=== PATIENT | male | born 1965 | race Caucasian/White ===

== ENCOUNTER 2017-09-12 15:07 | Emergency (ER) | payer BC ==
[2017-09-12 15:55] VITALS: BP 136/74
--- NOTE | 2017-09-12 16:20 | UC ---
Ear Complaint HPI - HPI Summary HPI Summary: feels like ears are plugged with wax - History of Current Complaint Chief Complaint: UCEar Stated Complaint: EARS PLUGGED Time Seen by Provider: 09/12/17 16:08 Hx Obtained From: Patient Onset/Duration: Gradual Onset, Lasting Days, Still Present Severity Initially: Mild Severity Currently: Moderate Aggravating Factors: Nothing Alleviating Factors: Nothing Associated Signs/Symptoms: Positive: Hearing Loss - Allergies/Home Medications Allergies/Adverse Reactions: Allergies Allergy/AdvReac Type Severity Reaction Status Date / Time No Known Allergies Allergy Verified 04/06/16 13:24 Home Medications: Home Medications Carbamide Peroxide (Otic) [Earwax Treatment Drops] 6.5 % OT DAILY PRN 09/12/17 [ History Confirmed 09/12/17] PMH/Surg Hx/FS Hx/Imm Hx Previously Healthy: No Endocrine History: Hypothyroidism - Surgical History Surgical History: Yes Surgery Procedure, Year, and Place: left ankle - Family History Known Family History: Positive: Hypertension - Social History Occupation: Employed Full-time Lives: Alone Alcohol Use: Daily Substance Use Type: None Smoking Status (MU): Current Some Day Smoker Type: Cigars Amount Used/How Often: occasional Length of Time of Smoking/Using Tobacco: 8 YR - Immunization History Most Recent Tetanus Shot: 2013 Review of Systems Constitutional: Negative Skin: Negative Eyes: Negative ENT: Other - cerumen impaction b/l Respiratory: Negative Cardiovascular: Negative Gastrointestinal: Negative Genitourinary: Negative Motor: Negative Neurovascular: Negative Musculoskeletal: Negative Neurological: Negative Psychological: Negative Is Patient Immunocompromised?: No All Other Systems Reviewed And Are Negative: Yes Physical Exam Triage Information Reviewed: Yes Appearance: Well-Appearing, No Pain Distress, Well-Nourished Vital Signs: Initial Vital Signs Temp 97.9 F 09/12/17 15:50 Pulse 75 09/12/17 15:50 Resp 18 09/12/17 15:50 BP 136/74 09/12/17 15:50 Pulse Ox 100 09/12/17 15:50 Vital Signs Reviewed: Yes Eye Exam: Normal Eyes: Positive: Conjunctiva Clear ENT Exam: Normal ENT: Positive: Normal ENT inspection, Hearing grossly normal, Pharynx normal, Uvula midline, Other - cerumen impaction b/l. Negative: Tonsillar swelling, Tonsillar exudate, Dental tenderness, Sinus tenderness Dental Exam: Normal Neck exam: Normal Neck: Positive: Supple, Nontender Respiratory Exam: Normal Respiratory: Positive: Chest non-tender, No respiratory distress, No accessory muscle use Cardiovascular Exam: Normal Cardiovascular: Positive: RRR, Pulses Normal, Brisk Capillary Refill Musculoskeletal Exam: Normal Musculoskeletal: Positive: Strength Intact, ROM Intact Neurological Exam: Normal Neurological: Positive: Alert, Muscle Tone Normal Psychological Exam: Normal Skin Exam: Normal Re-Evaluation - Re-Evaluation First Eval Change: Improved - tm wnl ears cleared of cerumen Ear Complaint Course/Dx - Course Course Of Treatment: return or follow with pcp prn avoid soap and qtips in ear - Differential Dx/Diagnosis Provider Diagnoses: Cerumen impaction now resolved Discharge - Discharge Plan Condition: Stable Disposition: HOME Patient Education Materials: Cerumen Impaction (ED) Referrals: Pastor Moran MD [Primary Care Provider] - If Needed
== END 2017-09-12 16:53 | disposition home or self-care (01) ==
LOC: UCCORT 15:07
DX: H61.23 Impacted cerumen, bilateral (principal); Z72.0 Tobacco use
CPT/HCPCS: 99213; G0463

== ENCOUNTER 2017-09-28 14:27 | Emergency (ER) | payer BC ==
[2017-09-28 15:20] VITALS: BP 141/86
--- NOTE | 2017-09-28 16:17 | UC ---
Ear Complaint HPI - HPI Summary HPI Summary: 51 year old male with ear pain. Had his ears cleaned out here a few weeks ago. Ears have been bothering him since then. He thinks he has an infection. no fever. no loss of hearing [ End ] - History of Current Complaint Chief Complaint: UCEar Stated Complaint: LEFT EAR ACHE Time Seen by Provider: 09/28/17 16:11 Hx Obtained From: Patient Onset/Duration: Gradual Onset Severity Initially: Mild Severity Currently: Moderate - Allergies/Home Medications Allergies/Adverse Reactions: Allergies Allergy/AdvReac Type Severity Reaction Status Date / Time No Known Allergies Allergy Verified 09/28/17 15:21 PMH/Surg Hx/FS Hx/Imm Hx Previously Healthy: Yes - Surgical History Surgical History: Yes Surgery Procedure, Year, and Place: left ankle - Family History Known Family History: Positive: Hypertension - Social History Occupation: Employed Full-time Lives: With Family Alcohol Use: Daily Substance Use Type: None Smoking Status (MU): Current Some Day Smoker Type: Cigars Amount Used/How Often: occasional Length of Time of Smoking/Using Tobacco: 8 YR - Immunization History Most Recent Tetanus Shot: 2013 Review of Systems ENT: Ear Ache Is Patient Immunocompromised?: No All Other Systems Reviewed And Are Negative: Yes Physical Exam Triage Information Reviewed: Yes Appearance: Well-Appearing, No Pain Distress, Well-Nourished Vital Signs: Initial Vital Signs Temp 98.3 F 09/28/17 15:15 Pulse 72 09/28/17 15:15 Resp 14 09/28/17 15:15 BP 141/86 09/28/17 15:15 Pulse Ox 98 09/28/17 15:15 Vital Signs Reviewed: Yes Eye Exam: Normal ENT: Positive: Other - left ear with significant edema and swelling can not visualize the TM due to pain and swelling in the ear Respiratory Exam: Normal Cardiovascular Exam: Normal Ear Complaint Course/Dx - Course Course Of Treatment: if sx worsen go to ED and he is agreeable - Differential Dx/Diagnosis Differential Diagnosis/HQI/PQRI: Otitis Externa, Otitis Media, Perforated TM, URI Provider Diagnoses: Left AOE and AOM Discharge - Discharge Plan Condition: Good Disposition: HOME Prescriptions: Amoxicillin PO (*) [Amoxicillin 875 MG (*)] 875 mg PO BID #20 tab Neomyc/Polym/HC 1% OTIC SUSP* [Cortisporin Otic Susp 1%*] 4 drop LEFT EAR QID # 1 btl Patient Education Materials: Otitis Media (ED) Referrals: Pastor Moran MD [Primary Care Provider] - 4 Days (if needed )
== END 2017-09-28 16:25 | disposition home or self-care (01) ==
LOC: UCCORT 14:27
DX: H60.502 Unspecified acute noninfective otitis externa, left ear (principal); H66.92 Otitis media, unspecified, left ear; Z72.0 Tobacco use
CPT/HCPCS: 99212; G0463

== ENCOUNTER 2019-01-15 10:43 | Emergency (ER) | payer BC ==
[2019-01-15 11:17] VITALS: BP 136/90
--- NOTE | 2019-01-15 11:44 | UC ---
General HPI - HPI Summary HPI Summary: PT STATES "I SAW SOME BLOOD IN MY URINE YESTERDAY AFTERNOON WHILE TAKING A PEE". HE DENIES ANY HX OF SAME. NO ASSOCIATED FEVER, ABDOMINAL OR FLANK PAIN. NO FREQUENCY, URGENCY OR BURNING WITH URINATION. NO DAILY ASPIRIN OR BLOOD THINNER USE. DENIES HX BRUISING/BLEEDING EASILY. HE CALLED DR BARRAGAN BUT THEY DO NOT TAKE HIS NEW [place] INSURANCE AND HE IS RELOCATING TO [place] NOW. HE ADMITS TO A MILD LOW BACK ACHE BUT STATES THAT IS FROM ALL OF THE LIFTING AND BENDING TO MOVE. NO BLOOD IN URINE TODAY. - History of Current Complaint Chief Complaint: UCGU Stated Complaint: URINARY COMPLAINT Time Seen by Provider: 01/15/19 11:36 Hx Obtained From: Patient Pain Intensity: 0 Aggravating: NOTHING Alleviating: NOTHING Associated Signs & Symptoms: Negative: Dysuria, Fever - Allergy/Home Medications Allergies/Adverse Reactions: Allergies Allergy/AdvReac Type Severity Reaction Status Date / Time No Known Allergies Allergy Verified 01/15/19 11:06 PMH/Surg Hx/FS Hx/Imm Hx Endocrine History: Thyroid Disease - Surgical History Surgical History: Yes Surgery Procedure, Year, and Place: left ankle - Family History Known Family History: Positive: Hypertension - Social History Occupation: Employed Full-time Alcohol Use: Occasionally Substance Use Type: None Smoking Status (MU): Current Some Day Smoker Type: Cigars Amount Used/How Often: occasional Length of Time of Smoking/Using Tobacco: 8 YR - Immunization History Most Recent Tetanus Shot: 2013 Review of Systems All Other Systems Reviewed And Are Negative: Yes Constitutional: Negative: Fever Gastrointestinal: Negative: Abdominal Pain, Vomiting, Diarrhea, Nausea Genitourinary: Positive: Hematuria. Negative: Dysuria, Frequency, Urgency, Vaginal/Penile Burning, Vaginal/Penile Discharge, Ulceration/Lesion Musculoskeletal: Positive: Other: - MILD ACHE LOW BACK Physical Exam Triage Information Reviewed: Yes Appearance: Well-Appearing Vital Signs: Initial Vital Signs Temp 98 F 01/15/19 11:07 Pulse 70 01/15/19 11:07 Resp 16 01/15/19 11:07 BP 136/90 01/15/19 11:07 Pulse Ox 99 01/15/19 11:07 Vital Signs Reviewed: Yes Eyes: Positive: Conjunctiva Clear ENT: Positive: Normal ENT inspection Neck: Positive: Supple, Nontender, No Lymphadenopathy Respiratory: Positive: Lungs clear, Normal breath sounds, No respiratory distress Cardiovascular: Positive: RRR, No Murmur Abdomen Description: Positive: Nontender, No Organomegaly, Soft, Other: - Prosates no tender, boggy or enlarged and no nodules appreciated.. Negative: Bruit, CVA Tenderness (R), CVA Tenderness (L), Pulsatile Mass Bowel Sounds: Positive: Present Male Genital Exam: Positive: No Hernia, Epididymal Tenderness, Other - varicosities noted.. Negative: Scrotum Tenderness (R), Scrotum Tenderness (L), Testicular Tenderness (R), Testicular Tenderness (L) Musculoskeletal: Positive: ROM Intact Neurological: Positive: Alert Psychological: Positive: Age Appropriate Behavior Skin Exam: Normal Course/Dx - Course Course Of Treatment: DIAGNOSTIC=u/a=2+ blood and urobilogen. NO HX HTN, WILL HAVE RECHECK ON F/U. - Differential Dx - Multi-Symptom Differential Diagnoses: Other - non toxic, no acute abdomen. nothing on hx/pe to suggest renal stone at this time. u/a=2+ blood only. will need additional evaluation and need for f/u stressed at time of visit to determine the cause of blood in urine. pt advise that CA is in the possible causes for blood in urine. he agrees to seek f/u in [place]. pt told nurse leaving for [place] next week but told myself that he is leaving now. - Diagnoses Provider Diagnosis: Hematuria Discharge - Sign-Out/Discharge Documenting (check all that apply): Patient Departure All imaging exams completed and their final reports reviewed: No Studies - Discharge Plan Condition: Stable Disposition: HOME Patient Education Materials: Hematuria (ED) Referrals: Pastor Barragan MD [Primary Care Provider] - Additional Instructions: YOU MUST FOLLOW UP WITH A PRIMARY CARE OR UROLOGIST IN [place] SOON POSSIBLE. GO TO THE NEAREST EMERGENCY ROOM FOR ANY REOCCURRENCE OR WORSENING. - Billing Disposition and Condition Condition: STABLE Disposition: Home
== END 2019-01-15 11:59 | disposition home or self-care (01) ==
LOC: UCCORT 10:43
DX: R31.9 Hematuria, unspecified (principal); M54.5 Low back pain; E07.9 Disorder of thyroid, unspecified; Z72.0 Tobacco use
CPT/HCPCS: 81003; 87086; 99211; G0463